=== PATIENT | female | born 1970 | race Caucasian/White ===

== ENCOUNTER 2024-09-19 06:09 | Day surgery (SDC) | payer BC, OTHER ==
[2024-09-16 15:12] VITALS: BMI 21.9
[2024-09-19 06:54] VITALS: RESP 16; TEMP 97.7
[2024-09-19] MEDS ORDERED: MIDAZOLAM HCL 2 MG/2 ML SINGLE DOSE VIAL ONE (07:19)
[2024-09-19] MEDS ORDERED: PROPOFOL 20 ML ONE ×2 (07:19→07:55)
[2024-09-19] MEDS ORDERED: TRIAMCINOLONE ACET 40MG/1ML VIAL ONE (07:21)
[2024-09-19] MEDS ORDERED: LIDOCAINE HCL 2% (20ML MULTI-DOSE VIAL) ONE (07:21)
[2024-09-19] MEDS ORDERED: BUPIVACAINE HCL/PF 0.5% (5MG/ML) 10 ML VIAL ONE (07:21)
[2024-09-19] MEDS ORDERED: ceFAZolin SODIUM 1 GM VIAL ONE (07:50)
[2024-09-19] MEDS ORDERED: ONDANSETRON 4 MG/2 ML VIAL ONE ×2 (07:55→09:16)
[2024-09-19] MEDS ORDERED: KETOROLAC TROMETHAMINE 30 MG/1 ML VIAL ONE (07:55)
[2024-09-19] MEDS ORDERED: DEXAMETHASONE SOD PHOSPHATE 4 MG/1 ML VIAL ONE (07:55)
[2024-09-19] MEDS ORDERED: ACETAMINOPHEN INJECTION 100 ML ONE (08:13)
[2024-09-19 09:53] VITALS: PULSE 61
[2024-09-19 10:52] VITALS: BP 112/72
== END 2024-09-19 11:05 | disposition home or self-care (01) ==
LOC: FASU 06:09
PROVIDERS: ATTEND Podiatrist
PROC: 0QSN04Z Reposition Right Metatarsal with Internal Fixation Device, Open Approach (ICD-10-PCS; principal; 2024-09-19 08:01)
DX: M20.11 Hallux valgus (acquired), right foot (principal)
CPT/HCPCS: 73630-TC-RT-FY; 81025; 88305-TC; 88311-TC; C1713; J0131